=== PATIENT | male | born 1990 | race Two or more races ===

== ENCOUNTER 2018-11-05 19:11 | Emergency (ER) | payer SELFPAY ==
[~2018-11-05] VITALS: Ht 180.3 cm; Wt 95.3 kg
[2018-11-05 19:12] VITALS: BP 133/79
--- NOTE | 2018-11-05 19:20 | NUR ---
ED Nurse Note: Patient presents BIBP with complaints of bump on head. patient has no other complaints or pertinent medical history.
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
== END 2018-11-05 19:33 ==
LOC: EMR 19:19
DX: S00.93XA Contusion of unspecified part of head, initial encounter (principal); T14.8XXA Other injury of unspecified body region, initial encounter; Y04.2XXA Assault by strike against or bumped into by another person, initial encounter; Y92.410 Unspecified street and highway as the place of occurrence of the external cause
CPT/HCPCS: 99282